=== PATIENT | male | born 1995 | race Caucasian/White ===

== ENCOUNTER 2016-04-25 22:18 | Emergency (ER) | payer MEDICAID, OTHER ==
[~2016-04-25] VITALS: Ht 182.9 cm; Wt 79.4 kg
[~2016-04-25 22:18] MED LIST: MEDR4PAK3 PO
[2016-04-25 22:27] VITALS: BP 120/81; PULSE 67; RESP 16; TEMP 98.2; O2SAT 99
[2016-04-25] MEDS ORDERED: KETOROLAC TROMETHAMINE 60 MG/2 ML (IM) VIAL IM ONE (23:00)
[2016-04-25] MEDS ORDERED: ORPHENADRINE INJ 60 MG/2 ML AMP IM ONE (23:00)
[2016-04-25] MEDS ORDERED: CYCL1TAB29 PO (23:09)
[2016-04-25] MEDS ORDERED: IBUP-232 PO (23:09)
--- NOTE | 2016-04-25 23:09 | PD ---
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 Movements reproduce the pain and touching the area reproduces the pain. He denies any fever or shortness of breath. PFSH Past Medical History Diminished Hearing: No Respiratory: Yes (childhood asthma) Immunizations Current: Yes Influenza Vaccination: No Social History Alcohol Use: Yes (rarely) Tobacco Use: No Substance Use: No Allergies-Medications (Allergen,Severity, Reaction): Coded Allergies: No Known Allergies (Unverified , 09/06/15) Reported Meds & Prescriptions Reported Meds & Active Scripts Active No Active Prescriptions or Reported Medications Review of Systems Except as stated in HPI: all other systems reviewed are Neg Physical Exam Narrative GENERAL: Well-nourished, well-developed patient in slight apparent distress with face left back muscle discomfort. His vital signs are normal. SKIN: Warm and dry. HEAD: Normocephalic. EYES: No scleral icterus. No injection or drainage. NECK: Supple, trachea midline. No JVD or lymphadenopathy. CARDIOVASCULAR: Regular rate and rhythm without murmurs, gallops, or rubs. RESPIRATORY: Breath sounds equal bilaterally. No accessory muscle use. GASTROINTESTINAL: Abdomen soft, non-tender, nondistended. MUSCULOSKELETAL: No cyanosis, or edema. I can completely reproduce the patient' s pain by pressing on one area of the medial inferior scapular edge on the left. The patient can fully abduct his left arm with minimal pain. BACK: Nontender without obvious deformity. No CVA tenderness. Data Data Last Documented VS Vital Signs Date Time Temp Pulse Resp B/P Pulse Ox O2 Delivery O2 Flow Rate FiO2 04/25/16 22:34 67 16 04/25/16 22:27 98.2 120/81 99 MDM Medical Decision Making Medical Screen Exam Complete: Yes Emergency Medical Condition: Yes Medical Record Reviewed: Yes Differential Diagnosis Muscle strain back, subscapular bursitis, trigger point inflammation Narrative Course The patient appears to have a muscle strain of his back. There is no evidence of subscapular bursitis. Plan: The patient is given Motrin and Flexeril. He should not drink alcohol or drive on the Flexeril. He is also given several days off of work. He should use a heating pad on as well as setting an interposed a towel between his skin and the pad. Diagnosis Primary Impression: Muscle strain of left upper back Additional Instructions: As we discussed, use a heating pad on as well as setting an interposed a towel between your skin and the pad. Do not drink alcohol or drive on the Flexeril since it can make you sleepy. Take the Motrin regularly, 1 tablet 3 times daily to develop high anti-inflammatory levels in your blood. Med/Other Pt SpecificInfo: Prescription(s) given Scripts Ibuprofen 600 Mg [id number] Mg PO TID #40 TAB Ref 0 Prov:Marcus Faustin MD 04/25/16 Cyclobenzaprine (Flexeril)10 Mg Tab10 Mg PO TID #30 TAB Ref 0 Prov:Marcus Faustin MD 04/25/16 Disposition: 01 DISCHARGE HOME Condition: Stable Marcus Faustin MD Apr 25, 2016 23:09
== END 2016-04-25 23:29 | disposition home or self-care (01) ==
LOC: PHED 22:18
DX: S29.012A Strain of muscle and tendon of back wall of thorax, initial encounter (principal); X50.0XXA Overexertion from strenuous movement or load, initial encounter; Y93.9 Activity, unspecified; Y92.9 Unspecified place or not applicable; Y99.0 Civilian activity done for income or pay
CPT/HCPCS: 96372; 99283; J1885; J2360